=== PATIENT | female | born 1985 | race Caucasian/White ===

== ENCOUNTER 2016-09-10 11:00 | Day surgery (SDC) | payer BC ==
[2016-09-10] MEDS ORDERED: D5 LR 1000 ML 1,000 ML IV ONE (11:09)
[2016-09-10] MEDS ORDERED: NORMODYNE INJ 100 MG VIAL ONE (11:54)
[2016-09-10 12:38] LABS: SERUM PREGNANCY TEST, QUAL NEGATIVE <10 mIU/mL
[2016-09-10] MEDS ORDERED: DIPRIVAN VIAL 10 ML ONE (12:44)
[2016-09-10] MEDS ORDERED: DIPRIVAN VIAL 20 ML ONE (12:52)
[2016-09-10 15:03] VITALS: BP 129/81
== END 2016-09-10 13:25 | disposition home or self-care (01) ==
LOC: SURG1 11:00
PROVIDERS: ATTEND Internal Medicine Gastroenterology
PROC: 0DB68ZX Excision of Stomach, Via Natural or Artificial Opening Endoscopic, Diagnostic (ICD-10-PCS; principal; 2016-09-10 15:00)
PROC: 0DB88ZX Excision of Small Intestine, Via Natural or Artificial Opening Endoscopic, Diagnostic (ICD-10-PCS; principal; 2016-09-10 15:00)
PROC: 0DJ08ZZ Inspection of Upper Intestinal Tract, Via Natural or Artificial Opening Endoscopic (ICD-10-PCS; principal; 2016-09-10 15:00)
DX: R10.13 Epigastric pain (principal); K21.9 Gastro-esophageal reflux disease without esophagitis; R11.0 Nausea; K20.8 Other esophagitis; K29.60 Other gastritis without bleeding
CPT/HCPCS: 36415; 84703; A4217; J3490; J7120